=== PATIENT | male | born 2005 | race Caucasian/White ===

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

== ENCOUNTER 2024-08-14 21:17 | Emergency (ER) | payer SELFPAY ==
[~2024-08-14] VITALS: Ht 182.9 cm; Wt 104.0 kg
[~2024-08-14 21:17] MED LIST changes: +VOLTAREN75 MG PO
[2024-08-14] MEDS ORDERED: BACTRIM DS1 TAB PO (22:19)
[2024-08-14] MEDS ORDERED: SULFAMETHOXAZOLE W/TRIMETHOPRI 1 COMBO TAB PO ONE (22:20)
[2024-08-14 22:58] VITALS: BP 141/82
== END 2024-08-14 22:59 | disposition home or self-care (01) | DRG 607 ==
LOC: ED 21:17
DX: L73.9 Follicular disorder, unspecified (principal); Z72.0 Tobacco use